=== PATIENT | female | born 1950 | race Caucasian/White ===

== ENCOUNTER 2016-12-28 21:05 | Observation (INO) | payer MEDICARE ==
[~2016-12-28] VITALS: Ht 162.6 cm; Wt 100.2 kg
[2016-12-28 21:05] VITALS: BP 161/88; PULSE 90; RESP 24; O2SAT 94
[~2016-12-28 21:05] MED LIST: ASPI-973 PO; CHOL5000 PO; FENO135C PO; ZINC50TA56 PO; ZOV800 PO
--- NOTE | 2016-12-28 21:22 | ED.REPORT ---
HPI-Neurologic Deficit Date of Service Dec 28, 2016 ED Provider: Dr. 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 She was trying to drink a smoothie through a straw out of a glass and she couldn't get the right side of her mouth to warp around the straw. On the car ride over, she noticed slight numbness and tingling on the right side of her mouth. She denies LOC, confusion, dizziness, seizure, slurred speech, inability to speak, and weakness. Nursing Notes Stated Complaint: POSS STROKE,SLURRED SPEECH Chief Complaint: Neuro Symptoms/ Deficits Nursing Notes Reviewed: Yes Allergies: Coded Allergies: hydrocodone bitartrate (Verified Allergy, Unknown, NIGHTMARES, 01/13/16) iodine (Verified Allergy, Unknown, 12/28/16) "iffy reaction, can't remember" Scheduled Acyclovir (Acyclovir) 800 Mg Tab 500 MG PO 5XD Zinc Amino Acid Chelate (Zinc) 50 Mg Tablet 50 MG PO DAILY General Time Seen by Provider: 21:22 Chief Complaint Other (numbness right side of mouth) Hx Obtained From: Patient Arrived By: Walk-in Sudden in Onset?: Yes Onset Occurred: 16 - 30 minutes ago Symptom Duration: Since onset Severity: Current: No pain currently Recent Healthcare: No recent doctor visit, No recent hospitalization Similar Sx Previous: No Risk Factors NIH Stroke Scale Level of Consciousness: Alert and responsive (0) Ask Month & Age: Both questions right (0) Open/Close Eyes/Hand Faculty Head: Performs both tasks (0) Horizontal EO Movements: None (0) Visual Ko: No visual loss (0) Facial Palsy: Normal symmetry (0) Right Arm Motor Drift (10s): No drift 10 sec (0) Left Arm Motor Drift (10s): No drift 10 sec (0) Right Leg Motor Drift (5s): No drift 5 sec (0) Left Leg Motor Drift (5s): No drift 5 sec (0) Limb Ataxia FNF/Heel-Carrillo: No ataxia (0) Sensation (Arms/Legs/Face): No sensory loss (0) Language Aphasia: No aphasia, normal (0) Dysarthria: No dysarthria, normal (0) Extinction/Inattention: No exctinct/inattent (0) NIHSS Score: 0 Time NIHSS Performed: 21:30 Date NIHSS Performed: Dec 28, 2016 Past Medical History Past Medical History Reports: Diabetes mellitus Past Surgical History Reports: Tonsillectomy Smoking History Unknown if Ever Smoker Social History Other Social History: , Local resident Ambulatory Status Independent Review of Systems Neurologic: Denies: Change LOC, Confusion, Dizziness, Seizure, Slurred speech, Unable to speak, Weakness Complete sys rev & neg: except as marked. Ears / Nose / Throat: Reports: Mouth pain (right side mouth asymmetry ) Physical Exam Initial Vital Signs Vital Signs (First) Date Time Temp Pulse Resp B/P Pulse Ox O2 Delivery O2 Flow Rate FiO2 12/28/16 21:05 90 24 161/88 94 Room Air Initial VS: Reviewed ENT: Mucous membranes moist, Conjunctiva normal, No scleral icterus Neck: Supple, Non-tender, Full range of motion Abdomen / GI: Soft, Non-tender, No guarding, No rebound, No distention Extremities: Vascular intact, Neuro intact, No swelling, No tenderness Skin: Warm, Dry, No cyanosis Psychiatric: Mood/affect normal, Behavior normal, Normal thought content General/Constitutional: Awake, Alert Head / Eyes: Normocephalic, PERRL, EOMI potential facial asymmetry Respiratory / Chest: Atraumatic, Breath sounds NL, Breath sounds = bilat, No respiratory distress, No rales, No rhonchi, No wheezing, No retractions Cardiovascular: Heart rate NL, Regular rhythm, Heart sounds NL, No gallop, No murmurs, No rubs Neurologic: Oriented X3, Speech NL, No motor deficits, No sensory deficits, CN II - XII intact, Cerebellar NL, Memory NL Interpretation & Diagnostics Interpretation & Diagnostics: CT ANGIOGRAM NECK CONCLUSION: no significant stenosis 4 mm pulmonary nodule 4 mm and 10 mm thyroid nodules Lab Results Interpretation Result Diagram: 12/29/16 0652 12/29/16 0652 Test 12/28/16 21:20 12/28/16 23:45 Hold Purple Top Tube Received (Received) Prothrombin Time 9.8sec (8.1-12.5) Prothromb Time International Ratio 0.92ratio Activated Partial Thromboplast Time 26.1sec (22.8-33.0) Hold Blue Top Tube Received (Received) Total Bilirubin 0.4mg/dL (0.0-1.2) Aspartate Amino Transf (AST/SGOT) 30U/L (0-50) Alanine Aminotransferase (ALT/SGPT) 25U/L (0-32) Alkaline Phosphatase 84U/L (25-165) Troponin T 0.010ug/L (0.0-0.011) Total Protein 7.1g/dL (6.4-8.4) Albumin 4.4g/dL (3.4-5.0) Hold Gaston Top Tube Received (Received) Hold Liang Top Tube Received (Received) Urine Color Yellow (YELLOW) Urine Appearance Clear (CLEAR,HAZY) Urine pH 7.5 (5.0-8.0) Urine Specific Floris 1.015 (1.003-1.035) Urine Protein Negativemg/dL (NEG,TRACE) Urine Glucose (UA) Negativemg/dL (NEGATIVE) Urine Ketones Negativemg/dL (NEGATIVE) Urine Occult Blood Trace (NEGATIVE) Urine Nitrite Negative (NEGATIVE) Urine Bilirubin Negative (NEGATIVE) Urine Urobilinogen Normalmg/dL (NORMAL) Urine Leukocyte Esterase Trace (NEGATIVE) Urine RBC 3-10/hpf (0-2) Urine WBC 6-10/hpf (0-5) Urine Epithelial Cells Many/hpf (NONE-MOD) Urine Crystals None seen (NONE SEEN) Urine Bacteria None/hpf (NONE-FEW) Urine Hyaline Casts None/lpf (NONE) Urine Granular Casts None seen (NONE SEEN) Urine Waxy Casts None seen (NONE SEEN) Urine Red Blood Cell Casts None seen (NONE SEEN) Urine White Blood Cell Casts None seen (NONE SEEN) Urine Mucus None seen (None Seen) Urine Trichomonas None seen (NONE SEEN) Urine Yeast None (NONE SEEN) Urine Culture Reflexed Indicated ECG Interpretation Time: 10:00 Interpreted by: ED physician Normal ECG Interpretation: Normal ECG w/ rate of... (87) CT Head Interpretation IMPRESSION: 1. No acute intracranial process. Dictated by: Alley Willingham M.D. on 12/28/2016 at 21:51 Approved by: Alley Willingham M.D. on 12/28/2016 at 21:51 Re-Eval/Medical Decision Med Decision/Clinical Course Patient presents with right-sided facial weakness. She first noticed this when she was drinking a smoothie and she could not get the right side of her mouth to wrap around the cut. Gen. drive her here. Her NIH stroke score was initially 0. I could not see any facial asymmetry whatsoever and she had no sensory loss. She did have pain behind her right ear and over her mastoid. This area also looked well. She underwent CT imaging which was normal. CT and U Thomas did not show any evidence of an acute occlusion. After about an hour and a half I was able to appreciate some very mild facial asymmetry. I consulted with the stroke neurologist on-call at [facility]. He recommends against TPA. His thoughts of this is most likely a Smith's palsy due to the fact that she has an isolated cranial nerve VII palsy and she has preauricular pain. 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 Either way her NIH stroke score is 0 or 1 depending on what time evaluate her. There is no one a indication for thrombolytics. She will be admitted for the remainder of the stroke workup. Will start on aspirin therapy. The CT did mention lung nodule. The hospitalist is aware of this. This will need outpatient follow-up. Counseled Regarding: Diagnosis, Lab results, Need for admission Discharge & Departure Impression: Primary Impression: Facial droop Disposition: ADMITTED TO HOSPITAL Discharge Condition All VS Reviewed: Yes Condition: Stable Referrals: Tim Valerio MD (PCP) Jordon Attestation Portion of this note were transcribed by Ayah Burrell. I, Dr. Cox, personally performed the history, physical exam, and medical decision-making: I reviewed and confirmed the accuracy for the information in the transcribed note. Signed by: jordon Frey, 12/28/16 [id number] copies to: Tim Valerio MD, Todd P DO Dec 28, 2016 21:22 Ayah Burrell Dec 28, 2016 21:30 Urine Hyaline Casts None/lpf (NONE) Urine Granular Casts None seen (NONE SEEN) Urine Waxy Casts None seen (NONE SEEN) Urine Red Blood Cell Casts None seen (NONE SEEN) Urine White Blood Cell Casts None seen (NONE SEEN) Urine Mucus None seen (None Seen) Urine Trichomonas None seen (NONE SEEN) Urine Yeast None (NONE SEEN) Urine Culture Reflexed Indicated ECG Interpretation Time: 10:00 Interpreted by: ED physician Normal ECG Interpretation: Normal ECG w/ rate of... (87) CT Head Interpretation IMPRESSION: 1. No acute intracranial process. Dictated by: Alley Willingham M.D. on 12/28/2016 at 21:51 Approved by: Allye Willingham M.D. on 12/28/2016 at 21:51 Re-Eval/Medical Decision Counseled Regarding: Diagnosis, Lab results, Need for admission Discharge & Departure Impression: Primary Impression: Facial droop Disposition: ADMITTED TO HOSPITAL Discharge Condition All VS Reviewed: Yes Condition: Stable Referrals: Tim Valerio MD (PCP) Jordon Attestation Portion of this note were transcribed by Ayah Burrell. I, Dr. Cox, personally performed the history, physical exam, and medical decision-making: I reviewed and confirmed the accuracy for the information in the transcribed note. Signed by: jordon Frey, 12/28/16 1622 copies to: Tim Valerio MD, Todd P DO Dec 28, 2016 21:22 Ayah Burrell Dec 28, 2016 21:30
[2016-12-28 21:45] LABS: BASOPHILS % (AUTO) 0.2 % (0-3); EOSINOPHILS % (AUTO) 1.5 % (0-5); MONOCYTES % (AUTO) 7.5 % (4-12); Mean Corpuscular Hemoglobin 28.5 pg (27.0-35.0); Mean Corpuscular Volume 84.1 fL (81-100); NEUTROPHILS % (AUTO) 57.2 % (40-74); Platelet Count 194 bil/L (150-400)
[2016-12-28 21:50] LABS: INR 0.92 ratio
--- NOTE | 2016-12-28 21:53 | DRSVH ---
PROCEDURE: CT BRAIN WITHOUT CONTRAST ([id number]) INDICATIONS: right facial numbess/feels like lips are "off" TECHNIQUE: Noncontrast 4.5 mm thick angled axial sections acquired from the foramen magnum to the vertex, with c oronal reformats. COMPARISON: None. FINDINGS: Image quality: Excellent. CSF spaces: Basal cisterns are patent. No extra-axial fluid collections. Ventricles are normal in size and shape. Brain: No midline shift. No intracranial masses or hemorrhage. Coleman-white matter interface is norm al. Skull and face: Calvarium and visualized facial bones are intact, without suspicious lesions. Sinuses: Visualized sinuses and mastoids are clear. IMPRESSION: 1. No acute intracranial process. Dictated by: Alley Willingham M.D. on 12/28/2016 at 21:51 Approved by: Alley Willingham M.D. on 12/28/2016 at 21:51
[2016-12-28 22:42] LABS: TROPONIN T 0.01 ug/L (0.0-0.011)
[2016-12-29] VITALS (7 sets, daily range): BP systolic 138–156; BP diastolic 82–88; PULSE 81–90; RESP 18; O2SAT 93–95
[2016-12-29 00:12] LABS: APPEARANCE,URINE CLEAR (CLEAR,HAZY); COLOR,URINE YELLOW (YELLOW); OCCULT BLOOD,URINE TRACE (NEGATIVE); PH,URINE 7.5 (5.0-8.0); UROBILINOGEN,URINE NORMAL (NORMAL)
[2016-12-29] MEDS: Sodium Chloride LOK Flush 10 mL Syringe IVFLUSH SCH ×3 (00:39→16:34)
[2016-12-29] MEDS ORDERED: Alum-Mag Hydrox-Simeth 30 mL Suspension PO PRN (01:35)
[2016-12-29] MEDS ORDERED: Ondansetron 2 mg/mL 2 mL Inj IV PRN (01:35)
[2016-12-29] MEDS ORDERED: Polyethylene Glycol (PEG) 17 Gm Powder PO PRN (01:35)
--- NOTE | 2016-12-29 05:10 | PCM.HPMED ---
Subjective Date of Service Dec 29, 2016 Primary Provider: Admitting Physician: Primary Care Physician: Tim Valerio MD Attending Physician: Admit Status: From the Emergency Department Chief Complaint: Facial droop History of Present Illness: 66 year old female w/ a hx of DM who presented to the ED accompanied by her due to concern of a stroke with right-sided facial droop. Symptoms started 20 minutes prior to arrival, she was trying to drink a smoothie through a straw out of a glass and she couldn't get the right side of her mouth to warp around the straw. She noticed that her lip and face felt funny and continued worsening. She had some associated generally unwell feelings at that time and attributes it to anxiety because she was really worried that she may be having a stroke. Currently she describes the sensation as if she had Novocain 8-10 hours ago. She has neuropathy in her lower extremities and understands what nerve pain feels like, she says her facial pain is not intense. She notes that a few days ago she fell asleep on her right side with hearing aid in and since Wednesday has been feeling some right-sided lower parietal and occipital pain "behind the ear". She reports no recent viral illness or infection. No recent travel or hiking. She reports some gradually increasing forgetfulness over the last few years. Review of systems positive for occasional mild chest discomfort , patient attributes this to GERD and Pittman's esophagus. She denies LOC, confusion, dizziness, seizure, slurred speech, inability to speak, difficulty swallowing, and focal weakness. Review of Systems: A comprehensive review of systems was conducted with the patient and found to be negative except as above in the History of Present Illness. Allergies Coded Allergies: hydrocodone bitartrate (Verified Allergy, Unknown, NIGHTMARES, 01/13/16) iodine (Verified Allergy, Unknown, 12/28/16) "iffy reaction, can't remember" Home Medications Acyclovir PMH 1. Diabetes Mellitus Type 2 2. GERD 3. Pittman's esophagus 4. Obstructive sleep apnea 5. Hyperlipidemia 6. Peripheral neuropathy 7. Fibroids 8. Kidney stones 9. Hearing loss Surgical History 1. Tonsillectomy 2. Bilateral knee replacements, right 2 3. Left foot repair 4. D&C 5. Left oophorectomy for abscess to ovarian cyst 6. L5-S1 decompression 7. Sinus surgery Family History Father at age 84 with CHF, he also had Parkinson's and dementia. Mother had diabetes mellitus type II Sister has rheumatoid arthritis Social History Occupation: retired Hx Alcohol Use: No Hx Substance Use: No Smoking Status: Former Smoker (quit in 1989) Living Arrangement: with Family Exam Vital Signs Vital Sign - Last Date Time Temp Pulse Resp B/P Pulse Ox O2 Delivery O2 Flow Rate FiO2 12/28/16 21:05 90 24 161/88 94 Room Air Exam General: No acute distress, well-developed, well-nourished, appropriately interactive HEENT: Normocephalic, atraumatic. External ears without defect. Pupils equal, round, and reactive to light and accommodation. Anicteric sclerae, moist conjunctiva. Oropharynx free of erythema and cobble stoning with moist mucosa. Neck: Supple with full range of motion. No jugular venous distension. No lymphadenopathy, right thyroid lobe mildly enlarged. Cardiovascular: Regular rate and rhythm with no murmurs, rubs, or gallops appreciated Pulmonary: Clear to auscultation bilaterally with no crackles, wheezes, or rhonchi. Normal respiratory effort with no use of accessory muscles. Abdomen: Bowel tones present. Obese, soft, nontender, nondistended. No hepatosplenomegaly or masses appreciated. Extremities: No clubbing, cyanosis, edema, or lymphadenopathy appreciated. Skin: Normal temperature, turgor, and texture; no rash, ulcers, or subcutaneous nodules appreciated. Neurological: Right-sided facial weakness noted with decreased ability to raise right eyebrow and a symmetrical smile. Facial sensation intact, tongue movements normal. Ocular movements symmetric and congruent. Normal muscle strength, tone, and bulk. Reflexes, coordination, and sensory function within normal limits. Difficulty with hand engraver tire mold secondary to arthritis. No pronator drift. No known gait impairment. Psychiatric: Normal mood and affect. Alert and oriented to person, place, and time. Lab and Diagnostics Result Diagram: 12/28/16211912/28/162119 X-Rays, CTs and MRIs PROCEDURE: CT BRAIN WITHOUT CONTRAST ([id number]) IMPRESSION: 1. No acute intracranial process. Dictated by: Alley Willingham M.D. on 12/28/2016 at 21:51 CT angiogram preliminary read shows no significant stenosis, 4 mm pulmonary nodule, thyroid nodules 4 mm and 10 mm. Assessment & Plan 66 year old female with history of DM type II who presented to the ED accompanied by her due to concern of a stroke with right-sided facial droop. 1. Right-sided facial droop, present on admission, acute - Consider CVA versus bells palsy. - CT brain shows no acute intracranial abnormalities - MRI brain ordered for the morning - Neuro checks q4HR, permissive HTN - HgbA1c pending, lipid panel pending, ASA 325 daily, initiate statin tx - 60 mg prednisone daily ordered recommended short course for Smith's palsy treatment if MRI does not show evidence of CVA 2. 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 Severe obstructive sleep apnea - patient to use own home CPAP machine Chronic conditions not currently active GERD/Pittman's esophagus - When necessary Maalox Peripheral neuropathy Diabetes mellitus type II - Currently Diet controlled with hemoglobin A1c less than 6 for the last 2 years per patient report. Patient is admitted under observation status with expected length of stay less than 2 midnights due to severity of presenting symptoms, risk of adverse event, and complexity of treatment plan. PCP Tim Valerio in [facility] Pain Evaluation: Adequate Pain Control GI Prophylaxis: Not indicated VTE Prophylaxis: Sub-Q Heparin (Unfractionated) (hep) Resuscitation Status: CPR: Attempt Resuscitation Attending Statement The patient was seen and examined together with house staff on 12/29/2016 and I agree with the history, exam and plan as outlined in the note above. copies to: Tim Valerio MD, Erika R DO Dec 29, 2016 02:41 Orly East DO Dec 29, 2016 05:29
--- NOTE | 2016-12-29 06:29 | NUR ---
Admit Pt arrived on unit from ED with all personal belongings. Able to transfer self to bed. VSS. Complained of neck pain 3/10, refused pain medication. Denies SOB, n/v. Complained of tingling and numbness around mouth. Slight right sided facial droop. Decreased clinical quality analyst r/t arthritis. Pt refused skin check. Allergy balcony worker bracelet. Bed locked, low position. Call light within reach, using appropriately.
[2016-12-29 07:13] LABS: BASOPHILS % (AUTO) 0.3 % (0-3); EOSINOPHILS % (AUTO) 1.7 % (0-5); MONOCYTES % (AUTO) 7.9 % (4-12); Mean Corpuscular Hemoglobin 28.2 pg (27.0-35.0); Mean Corpuscular Volume 84.9 fL (81-100); NEUTROPHILS % (AUTO) 57.6 % (40-74); Platelet Count 161 bil/L (150-400)
--- NOTE | 2016-12-29 08:06 | NUR ---
pt refusing all medications/and care until she has an official diagnosis after her MRI.
[2016-12-29] MEDS: Acyclovir 400 mg Tablet PO SCH ×3 (08:10→21:31)
[2016-12-29] MEDS: Heparin 5,000 Unit/mL Inj SUBQ SCH ×2 (08:10→20:30)
[2016-12-29] MEDS: predniSONE 10 mg Tablet PO SCH (08:10)
--- NOTE | 2016-12-29 10:41 | DRSVH ---
PROCEDURE: CT ANGIO BRAIN NECK TPA INDICATIONS: right facial droop TECHNIQUE: Pre-contrast 4.5 mm thick sections acquired from the foramen magnum to the vertex. After the adminis tration of intravenous contrast, 1 mm thick sections acquired from the aortic arch through the [place] of [place]. Post-contrast 4.5 mm thick sections then re-acquired from the foramen magnum to the vert ex. 3-dimensional qktzckb-xnxqeroul-srdztbjpnu (MIP) and/or volume rendering reformats were acquired of the central intracranial vasculature and neck separately. For radiation dose reduction, the foll owing was used: automated exposure control, adjustment of mA and/or kV according to patient size. COMPARISON: None. FINDINGS: Image quality: Limited by patient motion. BRAIN: CSF spaces: Ventricles are normal in size and shape. Basal cisterns are patent. No extra-axial flu id collections. Brain: No midline shift. No intracranial bleeds or masses. Coleman-white matter interface appears int act. Skull and face: Calvarium and facial bones appear intact, without suspicious lesions. Orbits appear normal. Sinuses: Sinuses and mastoids are clear. HEAD CT ANGIOGRAPHY: Anterior circulation: Intracranial internal carotid arteries are normal in size and flow. The flow within the paired anterior cerebral arteries is normal and symmetric. The flow within the middle cer ebral arteries is normal and symmetric. The anterior communicating artery is seen. No aneurysms are seen. Posterior circulation: Visualized portions of the vertebral arteries demonstrate normal caliber, and join to form a normal appearing basilar artery. Flow within the posterior cerebral arteries is norm al and symmetric. No aneurysms are seen. NECK CT ANGIOGRAPHY: Carotid system: The great vessels demonstrate a conventional anatomy as they arise from the aortic a rc. The origins of the common carotid arteries appear patent. The common carotid arteries demonstr ate normal caliber and courses. Atherosclerotic calcifications noted in the origin of the right inter nal carotid artery which causes mild, approximately 20% narrowing of the vessel. Origin of left inter nal carotid artery is fully patent.. Posterior circulation: The origins of the vertebral arteries both appear widely patent. The more wade perior extracranial portions of both vertebral arteries also demonstrate normal courses and calibers. They join to form a normal appearing basilar artery. Soft tissues: Visualized neck soft tissues demonstrate no suspicious abnormalities. 0.7 cm diameter nodule with spiculated margins is noted in the apex the left lung (series 13, image 13). 1 cm nodules noted in the left lobe of the thyroid gland. A 0.4 cm nodule noted in the right lobe of thyroid glan d. Bones: No suspicious bony lesions. Visualized cervical spine appears normally aligned. IMPRESSION: 1. No acute intracranial disease process. 2. No vascular occlusion or significant vascular stenosis. 3. Approximately 20% stenosis of the origin of the right internal carotid artery. 4. 7 mm spiculated nodule in the left upper lobe suspicious for malignancy. Recommend dedicated CT sc an of the chest for further evaluation. 5. Thyroid nodules. Recommend thyroid ultrasound for definitive characterization. Dictated by: Cindy Huitron MD, PhD on 12/29/2016 at 10:33 Approved by: Cindy Huitron MD, PhD on 12/29/2016 at 10:40
--- NOTE | 2016-12-29 15:31 | NUR ---
Social Work-attempted assessment: Data:EMR Reviewed. Pt is a 66 y/o female who was admitted on 12/29/16 for R facial droop per H&P. Pt's insurance is [facility] and [employer] supp and PC Pis Tim Valerio MD. EMR Reviewed. SW attempted to see pt today, but was updated by RN that now is not a good time because pt is trying to rest. Pt has orders to be seen by PT, OT ,and ST. SW updated by PT that pt has been up independent in her room, no needs. SW to follow up with pt tomorrow to complete assessment. Assessment:Pt who is independent at baseline. Plan:SW to follow up with pt tomorrow to complete assessment. SW will continue to follow. NAY Stringer
--- NOTE | 2016-12-29 16:17 | NUR ---
Evaluation attempted. Patient was not in room this evening. AIR BATTLE MANAGER recommended for oral motor exercises and compensatory strategies for R facial droop. Will attempt again tomorrow. If patient discharges prior to AIR BATTLE MANAGER evaluation, recommend outpatient AIR BATTLE MANAGER to review strategies and exercises for R facial droop.
--- NOTE | 2016-12-29 16:46 | DRSVH ---
PROCEDURE: MRI BRAIN WITHOUT CONTRAST ([id number]) INDICATIONS: right facial droop TECHNIQUE: Non-contrast axial T1 spin echo, axial T2 fast spin echo, sagittal and axial FLAIR, coronal T2 fast s pin echo, axial gradient echo, axial diffusion and ADC through the brain. COMPARISON: None. FINDINGS: Image quality: Excellent. CSF spaces: Ventricles appear symmetric in size and shape. Basal cisterns are patent. No extra-axi al fluid collections. Brain: No intracranial bleeds or mass effects. There is cerebral volume loss for age. There are mi nimal periventricular and deep white matter chronic small vessel ischemic changes. Brainstem appears normal. Diffusion-weighted images show no acute ischemic insults. No chronic ischemic insults. No rmal intravascular flow voids are present. Skull and face: Calvarial bone marrow is normal in signal. Orbits are normal. Sinuses: Sinuses and mastoids are clear. IMPRESSION: 1. No acute intracranial disease process. 2. No areas of acute or chronic infarction. 3. Mild, diffuse volume loss. 4. Minimal periventricular and subcortical white matter chronic microvascular ischemic changes. Dictated by: Cindy Huitron MD, PhD on 12/29/2016 at 16:41 Approved by: Cindy Huitron MD, PhD on 12/29/2016 at 16:44
--- NOTE | 2016-12-29 17:19 | DRSVH ---
[facility] [address] [place] [address] Echocardiogram Report Name: RITA DEAN KStudy Date: 12/29/2016 Height: 64 in Hospital Exam Location: [facility] Weight: 220 lb Gender: Female BSA: 2.0 m2 : 1950 Age: 66 yrs BP: 138/82 mmHg Reason For Study: STROKE Ordering Physician: Performed By: Oliver Bobby Referring Physician: Ruiz OROZCO Interpretation Summary 1) Mild concentric left ventricular hypertrophy with normal size, wall motion, and systolic function (EF 60-65%). 2) Normal right ventricular size and function. 3) No significant valvular abnormalities. 4) No prior Echo available for comparison. Procedure: A two-dimensional transthoracic echocardiogram with color flow and Doppler was performed. The study quality was technically adequate. Comparison is made with the echocardiogram of 12/14/07. The patient was in normal sinus rhythm during the exam. Left Ventricle: The left ventricle is normal in size. There is mild concentric left ventricular hypertrophy. The ejection fraction is estimated to be 60-65%. Left ventricular systolic function is normal. There are no focal wall motion abnormalities. Assessment of diastolic parameters indicates a relaxation abnormality of the left ventricle, consistent with normal filling pressures. Right Ventricle: The right ventricle is normal in size and function. Atria: Both atria are normal in size. The interatrial septum is intact with no evidence for an atrial septal defect. Mitral Valve: The mitral valve is normal in structure and function. There is no mitral regurgitation noted. Aortic Valve: The aortic valve is normal in structure and function. The aortic valve is trileaflet. The aortic valve opens well. There is no aortic valve stenosis. No aortic regurgitation is present. Tricuspid Valve: The tricuspid valve is normal in structure and function. No tricuspid regurgitation. Pulmonary artery pressures cannot be estimated because of the lack of a measurable TR jet velocity. Pulmonic Valve: The pulmonic valve is not well seen, but is grossly normal. There is no pulmonic valvular regurgitation. Great Vessels: The aortic root is normal size. The dimensions of the ascending aorta are normal. The pulmonary artery is normal size. The IVC is of normal diameter and collapses greater than 50% with a sniff. This suggests a low right atrial pressure of 3 mm Hg. Pericardium/ Pleura There is no pericardial effusion. There is no pleural effusion. MMode/2D Measurements & Calculations LVIDd: 4.6 cm LA dimension: 3.4 cm RA long axis Ao root diam LVIDs: 2.3 cm FS: 49.2 % LA A2 area: 16.7 cm RA area Aortic Jxn: 2.5 cm EPSS: 0.75 cm LA A4 area: 16.2 cm asc Aorta Diam IVSd: 1.2 cm LA length (vol) : 13.2 cm LVPWd: 1.0 cm RA vol Ao Arch Diam (Prox LA vol: 45.6 ml : 38.1 ml Trans): 2.5 cm LA vol index RA : 18.7 mm2 IVC diam: 1.3 cm LV garcía. diameter/BSA LV sys. diameter/BSA (cm/m^2): 2.2 (cm/m^2): 1.1 Doppler Measurements & Calculations Ao V2 max MV E max david MV E/A: 0.78 PA V2 max: 88.8 cm/sec : 186.9 cm/sec : 88.3 cm/sec Med Peak E' David PA mean P.8 mmHg Ao max PG MV A max david PA Accel Time: 0.09 sec : 14.0 mmHg : 113.7 cm/sec E/E' med: 14.6 Ao mean PG Lat Peak E' David : 7.2 mmHg E/E' lat: 10.5 E/e' average Pulm A Revs Dur MV A dur: 0.10 sec MV dec time Ao V2 mean PA V2 mean Pulm A Revs Dur - MV A : 0.18 sec : 128.0 cm/sec : 63.7 cm/sec Dur: 0.03 msec Ao V2 VTI: 32.0 cmPA pr(Accel) : 32.4 mmHg Reading Physician:04:11 PM
--- NOTE | 2016-12-29 20:12 | DRSVH ---
PROCEDURE: CT CHEST WITH CONTRAST ([id number]) INDICATIONS: lung nodule noted on head CT TECHNIQUE: After the administration of intravenous contrast, 5 mm thick sections acquired from the pulmonary api genny to the posterior costophrenic angles. 7 mm thick coronal and sagittal MIP reformats were acquire d. For radiation dose reduction, the following was used: automated exposure control, adjustment of mA and/or kV according to patient size. COMPARISON: [facility], CR, CHEST 2VW, 10/30/2012, 19:17. [facility], CT, CT ANGIO BRAIN NECK TPA, 12/29/2016, 0:30. FINDINGS: Image quality: Excellent. Lungs and pleura: No acute consolidation, pleural effusion or pneumothorax. There is scattered bibasi lar scarring/atelectasis. Recent identified 5 mm nodule in the left upper lobe as seen on image 17 se lenore 3. Additional larger 7 mm nodule with internal calcification seen on image 32. Dominant 9-10 mm nodule in the superior segment of the left lower lobe on image 31 series 3. Mediastinum: Heart size is normal. No pericardial effusion. No mediastinal or hilar adenopathy by size criteria. Thoracic aorta and central pulmonary arteries are normal in size. Esophagus is selvin l in caliber. No hiatal hernia. Bones and chest wall: No suspicious bony lesions. No vertebral body compression fractures. No axil omsan or supraclavicular adenopathy by size criteria. Thyroid gland negative. Abdomen: Hepatic steatosis is present IMPRESSION: Multiple left lung pulmonary nodules measuring up to 9-10 mm as detailed above. These are indetermina te in the absence of relevant comparison studies, and metastatic/malignant possibilities cannot be ex cluded. Therefore recommend continued surveillance with noncontrast chest CT in 3 months or alternati vely at clinical discretion further assessment with PET/CT could be considered Dictated by: Ean Hart M.D. on 12/29/2016 at 20:04 Approved by: Ean Hart M.D. on 12/29/2016 at 20:11
[2016-12-30] MEDS: Sodium Chloride LOK Flush 10 mL Syringe IVFLUSH SCH ×2 (02:03→07:39)
--- NOTE | 2016-12-30 03:51 | NUR ---
refusal of care assumed care @23:00. Pt refused to be assessed and just want to be left alone tonight. Pt sleeping intermittently.
[2016-12-30 03:59] VITALS: PULSE 73
[2016-12-30 06:41] VITALS: BP 154/85; PULSE 72; RESP 18; O2SAT 97
[2016-12-30] MEDS: predniSONE 10 mg Tablet PO SCH (07:38)
[2016-12-30] MEDS: Heparin 5,000 Unit/mL Inj SUBQ SCH (07:38)
[2016-12-30] MEDS: Acyclovir 400 mg Tablet PO SCH (07:39)
[2016-12-30 09:22] VITALS: BP 151/75; PULSE 84; RESP 18; O2SAT 95
--- NOTE | 2016-12-30 10:15 | NUR ---
Social Work-initial assessment/discharge: Data:See initial assessment. pt is a 66 y/o female who was admitted on 12/29/16 for R facial droop per H&P. Pt's insurance is [employer] and PCP is Tim Valerio MD. EMR reviewed. SW met with pt at bedside to discuss discharge planning, SW role explained. Pt is alert and oriented x3. Pt is likely ready to discharge home today. Pt resides at home with her where she remains independent with ADLs. Pt does not use any DME and drives. Pt has no HH or SNF history. Pt has no jail care or VA benefits. SW discussed DPOA/ advanced directive, pt confirms that she has not completed this, SW provided paperwork. Pt's to provide transport home today. SW provided phone number and plan on white board in room. No discharge needs identified. All updated and agreeable to plan. Assessment:Pt who is independent at baseline. Plan:Pt to discharge home today via POV. No discharge needs identified. All updated and agreeable to plan. NAY Stringer Addendum: 12/30/16 at 1018 by AURORA BAILEY Amended: Links added.
--- NOTE | 2016-12-30 11:01 | NUR ---
Evaluation completed. Please go to "Notes" then click on "Assessments and Notes" (bottom left corner of screen). Then select appropriate discipline tab on top of screen.
[2016-12-30] MEDS ORDERED: PRE10 PO (11:22)
--- NOTE | 2016-12-30 11:32 | PCM.DIMED ---
Discharge Instructions Date of Service Dec 30, 2016 Dates of Hospitalization Dec 29, 2016 at 03:02 Discharge Diagnosis Discharge Diagnosis 1. Acute right facial Smith's Palsy, present on admission. Ongoing. Possibly due to Herpes Simplex Virus. - Acute cerebrovascular accident (CVA) ruled out with CT and MRI of brain 2. 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 Obstructive sleep apnea on home CPAP 4. Multiple left lung pulmonary nodules measuring up to 9-[address] chest on 12/29/16. per radiology: "These are indeterminate in the absence of relevant comparison studies, and metastatic/malignant possibilities cannot be excluded. Therefore recommend continued surveillance with noncontrast chest CT in 3 months or alternatively at clinical discretion further assessment with PET/ CT could be considered" - Recommend further followup with your ribbon hand or primary care doctor as soon as possible for further management and workup 5. Possible pre-diabetes with HgA1C 7.4 6. Hyperlipidemia (Triglyceride: 444, Cholesterol 217, LDL: 96, HDL: 32) 7. Thyroid nodules noted on CT scan of chest on 12/28/16. - Recommend thyroid ultrasound as outpatient for definitive characterization. 8. GERD/Pittman's esophagus, chronic. Diet Low fat, Low Sodium, Heart Healthy Activity No restrictions Call your provider Fever or Chills, Shortness of breath, Chest pain, Weakness (unilateral) Patient Instructions Seek immediate medical attention if any new or worsening signs or symptoms occur. Follow-up plan 1. Followup with primary care provider (Dr. Valerio) within one week and for further management and workup of issues noted above. Follow-up Provider: Tim Valerio MD Follow-up with PCP in: 1 week Paul Hale Dec 30, 2016 11:32
--- NOTE | 2016-12-30 14:15 | NUR ---
Discharge Pt was discharged to home today via her spouse and POV. Pt IV taken out, cath tip intact. Pt had numerous questions regarding bells palsy and all questions answered and f/u understood.
--- NOTE | 2016-12-30 15:33 | PCM.DC.MED ---
Discharge Summary Date of Service Dec 30, 2016 Dates of Hospitalization Date of Hospital Admission Dec 29, 2016 at 03:02 Date of Discharge: Dec 30, 2016 Providers: Admitting Physician: Orly East DO Primary Care Physician: Tim Valerio MD Attending Physician: Orly East DO Diagnosis at Time of Discharge Diagnosis at Time of Discharge 1. Acute right facial Smith's Palsy, present on admission. Ongoing. Possibly due to Herpes Simplex Virus. - Acute cerebrovascular accident (CVA) ruled out with CT and MRI of brain 2. 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 Obstructive sleep apnea on home CPAP 4. Multiple left lung pulmonary nodules measuring up to 9-[address] chest on 12/29/16. per radiology: "These are indeterminate in the absence of relevant comparison studies, and metastatic/malignant possibilities cannot be excluded. Therefore recommend continued surveillance with noncontrast chest CT in 3 months or alternatively at clinical discretion further assessment with PET/ CT could be considered" - Recommend further followup with your public aid eligibility assistant or primary care doctor as soon as possible for further management and workup 5. Possible pre-diabetes with HgA1C 7.4 6. Hyperlipidemia (Triglyceride: 444, Cholesterol 217, LDL: 96, HDL: 32) 7. Thyroid nodules noted on CT scan of chest on 12/28/16. - Recommend thyroid ultrasound as outpatient for definitive characterization. 8. GERD/Pittman's esophagus, chronic. Procedures XRay, CTs & MRIs Date of Service: 12/28/16 2115 PROCEDURE: CT BRAIN WITHOUT CONTRAST ([id number]) IMPRESSION: 1. No acute intracranial process. Dictated by: Alley Willingham M.D. on 12/28/2016 at 21:51 Approved by: Alley Willingham M.D. on 12/28/2016 at 21:51 Date of Service: 12/29/16 0010 PROCEDURE: CT ANGIO BRAIN NECK TPA IMPRESSION: 1. No acute intracranial disease process. 2. No vascular occlusion or significant vascular stenosis. 3. Approximately 20% stenosis of the origin of the right internal carotid artery. 4. 7 mm spiculated nodule in the left upper lobe suspicious for malignancy. Recommend dedicated CT scan of the chest for further evaluation. 5. Thyroid nodules. Recommend thyroid ultrasound for definitive characterization. Dictated by: Cindy Huitron MD, PhD on 12/29/2016 at 10:33 Approved by: Cindy Huitron MD, PhD on 12/29/2016 at 10:40 Date of Service: 12/29/16 0800 PROCEDURE: MRI BRAIN WITHOUT CONTRAST ([id number]) IMPRESSION: 1. No acute intracranial disease process. 2. No areas of acute or chronic infarction. 3. Mild, diffuse volume loss. 4. Minimal periventricular and subcortical white matter chronic microvascular ischemic changes. Dictated by: Cindy Huitron MD, PhD on 12/29/2016 at 16:41 Approved by: Cindy Huitron MD, PhD on 12/29/2016 at 16:44 Date of Service: 12/29/16 9427 PROCEDURE: CT CHEST WITH CONTRAST ([id number]) IMPRESSION: Multiple left lung pulmonary nodules measuring up to 9-10 mm as detailed above. These are indeterminate in the absence of relevant comparison studies, and metastatic/malignant possibilities cannot be excluded. Therefore recommend continued surveillance with noncontrast chest CT in 3 months or alternatively at clinical discretion further assessment with PET/CT could be considered Dictated by: Ean Hart M.D. on 12/29/2016 at 20:04 Approved by: Ean Hart M.D. on 12/29/2016 at 20:11 Cardiac Echo Impression Date of Service: 12/29/16 1995 Echocardiogram Report Interpretation Summary 1) Mild concentric left ventricular hypertrophy with normal size, wall motion, and systolic function (EF 60-65%). 2) Normal right ventricular size and function. 3) No significant valvular abnormalities. 4) No prior Echo available for comparison. Reading Physician:04:11 PM Brief History As noted in H&P by Dr. Rose: 66 year old female w/ a hx of DM who presented to the ED accompanied by her due to concern of a stroke with right-sided facial droop. Symptoms started 20 minutes prior to arrival, she was trying to drink a smoothie through a straw out of a glass and she couldn't get the right side of her mouth to warp around the straw. She noticed that her lip and face felt funny and continued worsening. She had some associated generally unwell feelings at that time and attributes it to anxiety because she was really worried that she may be having a stroke. Currently she describes the sensation as if she had Novocain 8-10 hours ago. She has neuropathy in her lower extremities and understands what nerve pain feels like, she says her facial pain is not intense. She notes that a few days ago she fell asleep on her right side with hearing aid in and since Wednesday has been feeling some right-sided lower parietal and occipital pain "behind the ear". She reports no recent viral illness or infection. No recent travel or hiking. She reports some gradually increasing forgetfulness over the last few years. Review of systems positive for occasional mild chest discomfort , patient attributes this to GERD and Pittman's esophagus. She denies LOC, confusion, dizziness, seizure, slurred speech, inability to speak, difficulty swallowing, and focal weakness. Hospital Course 1. Right-sided facial droop, present on admission, acute - CVA ruled out with CT and MRI - symptoms likely [place] Palsy and likely due to herpes simplex virus - 60 mg prednisone daily x 7 days and to continue with home dose Acyclovir 2. 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 Severe obstructive sleep apnea - patient to use own home CPAP machine 4. Multiple left lung pulmonary nodules measuring up to 9-[address] chest on 12/29/16. per radiology: "These are indeterminate in the absence of relevant comparison studies, and metastatic/malignant possibilities cannot be excluded. Therefore recommend continued surveillance with noncontrast chest CT in 3 months or alternatively at clinical discretion further assessment with PET/ CT could be considered" - Recommend further followup with your public aid eligibility assistant or primary care doctor as soon as possible for further management and workup - patient tells me that she has been worked up by pulmonology (harshal in [place]) in the past for known pulmonary nodules. 5. Possible pre-diabetes with HgA1C 7.4 - further followup as outpatient 6. Hyperlipidemia (Triglyceride: 444, Cholesterol 217, LDL: 96, HDL: 32) - further followup as outpatient 7. Thyroid nodules noted on CT scan of chest on 12/28/16. - Recommend thyroid ultrasound as outpatient for definitive characterization. by day of d/c lungs CTA bilat. neuro exam notable for continued mild right facial droop. Exam Vital Signs (Last) Date Time Temp Pulse Resp B/P Pulse Ox O2 Delivery O2 Flow Rate FiO2 12/30/16 09:22 36.8 84 18 151/75 95 Room Air Test 12/28/16 21:20 12/28/16 23:45 12/29/16 06:52 12/29/16 17:47 Hold Purple Top Tube Received (Received) Prothrombin Time 9.8sec (8.1-12.5) Prothromb Time International Ratio 0.92ratio Activated Partial Thromboplast Time 26.1sec (22.8-33.0) Hold Blue Top Tube Received (Received) Hemoglobin A1c 7.4% (4.8-5.6) Total Bilirubin 0.4mg/dL (0.0-1.2) Aspartate Amino Transf (AST/SGOT) 30U/L (0-50) Alanine Aminotransferase (ALT/SGPT) 25U/L (0-32) Alkaline Phosphatase 84U/L (25-165) Troponin T 0.010ug/L (0.0-0.011) Total Protein 7.1g/dL (6.4-8.4) Albumin 4.4g/dL (3.4-5.0) Hold [place] Top Tube Received (Received) Hold Liang Top Tube Received (Received) Urine Color Yellow (YELLOW) Urine Appearance Clear (CLEAR,HAZY) Urine pH 7.5 (5.0-8.0) Urine Specific Jber 1.015 (1.003-1.035) Urine Protein Negativemg/dL (NEG,TRACE) Urine Glucose (UA) Negativemg/dL (NEGATIVE) Urine Ketones Negativemg/dL (NEGATIVE) Urine Occult Blood Trace (NEGATIVE) Urine Nitrite Negative (NEGATIVE) Urine Bilirubin Negative (NEGATIVE) Urine Urobilinogen Normalmg/dL (NORMAL) Urine Leukocyte Esterase Trace (NEGATIVE) Urine RBC 3-10/hpf (0-2) Urine WBC 6-10/hpf (0-5) Urine Epithelial Cells Many/hpf (NONE-MOD) Urine Crystals None seen (NONE SEEN) Urine Bacteria None/hpf (NONE-FEW) Urine Hyaline Casts None/lpf (NONE) Urine Granular Casts None seen (NONE SEEN) Urine Waxy Casts None seen (NONE SEEN) Urine Red Blood Cell Casts None seen (NONE SEEN) Urine White Blood Cell Casts None seen (NONE SEEN) Urine Mucus None seen (None Seen) Urine Trichomonas None seen (NONE SEEN) Urine Yeast None (NONE SEEN) Urine Culture Reflexed Indicated White Blood Count 7.2th/mm3 (3.8-10.1) Red Blood Count 5.29mil/mm3 (3.90-5.20) Hemoglobin 14.9g/dL (12.0-15.6) Hematocrit 44.9% (35.0-46.0) Mean Corpuscular Volume 84.9fL (81-100) Mean Corpuscular Hemoglobin 28.2pg (27.0-35.0) Mean Corpuscular Hemoglobin Concent 33.2% (32.0-37.0) Red Cell Distribution Width 13.5% (12.3-15.4) Platelet Count 161bil/L (150-400) Neutrophils (%) (Auto) 57.6% (40-74) Lymphocytes (%) (Auto) 31.9% (14-46) Monocytes (%) (Auto) 7.9% (4-12) Eosinophils (%) (Auto) 1.7% (0-5) Basophils (%) (Auto) 0.3% (0-3) Sodium Level 139mEq/L (134-144) Potassium Level 4.2mEq/L (3.5-5.2) Chloride Level 96mEq/L (97-108) Carbon Dioxide Level 23mmol/L (18-29) Blood Urea Nitrogen 11mg/dL (8-27) Creatinine 0.47mg/dL (0.57-1.00) Estimat Glomerular Filtration Rate 190mL/min (>59) Glucose Level 193mg/dL (60-99) Calcium Level 10.0mg/dL (8.5-10.1) Triglycerides Level 444mg/dL (0-149) Cholesterol Level 217mg/dL (100-199) LDL Cholesterol, Calculated 96.200mg/dL (0-99) VLDL Cholesterol 88.800mg/dL HDL Cholesterol 32mg/dL (>39) Cholesterol/HDL Ratio 6.78 (0.0-4.4) Thyroid Stimulating Hormone (TSH) 1.390uIU/mL (0.450-4.500) Free Thyroxine 0.84ng/dL (0.82-1.77) Discharge Medications Discharge Medications Acyclovir (Acyclovir) 800 Mg Tab 500 MG PO 5XD (Reported) Prednisone (PredniSONE) 10 Mg Tablet 60 MG PO DAILY Prescribed by: MUNA PINEDO MD Zinc Amino Acid Chelate (Zinc) 50 Mg Tablet 50 MG PO DAILY (Reported) Followup Plan Disposition: Home Follow-up plan 1. Followup with primary care provider (Dr. Valerio) within one week and for further management and workup of issues noted above. Discharge Diet: Low fat, Low Sodium, Heart Healthy Discharge Activity: No restrictions Patient Instructions Seek immediate medical attention if any new or worsening signs or symptoms occur. Follow-up Provider: Tim Valerio MD Follow-up with PCP in: 1 week Time spent 30 min copies to: Tim Valerio MD, Masoud Dec 30, 2016 15:33
== END 2016-12-30 14:15 | disposition home or self-care (01) ==
LOC: SED 21:05 → MPC 12-29 03:02
PROVIDERS: ADMIT Internal Medicine; ATTEND Internal Medicine
DX: G51.0 Bell's palsy (principal); R29.810 Facial weakness; B00.1 Herpesviral vesicular dermatitis; G47.33 Obstructive sleep apnea (adult) (pediatric); R91.8 Other nonspecific abnormal finding of lung field; E78.5 Hyperlipidemia, unspecified; E04.1 Nontoxic single thyroid nodule; K21.9 Gastro-esophageal reflux disease without esophagitis; R20.0 Anesthesia of skin; E11.42 Type 2 diabetes mellitus with diabetic polyneuropathy; K22.70 Barrett's esophagus without dysplasia; Z87.442 Personal history of urinary calculi; Z88.8 Allergy status to other drugs, medicaments and biological substances; Z96.653 Presence of artificial knee joint, bilateral

== ENCOUNTER 2017-06-15 14:00 | Emergency (ER) | payer MEDICARE ==
[~2017-06-15] VITALS: Ht 161.3 cm; Wt 96.4 kg
[~2017-06-15 14:00] MED LIST changes: -ASPI-973 PO; -CHOL5000 PO; -FENO135C PO; +PRE10 PO
[2017-06-15 14:03] VITALS: BP 115/63; PULSE 90; RESP 15; O2SAT 95
--- NOTE | 2017-06-15 14:23 | ED.REPORT ---
HPI-Extremity Problem Lower Date of Service Jun 15, 2017 ED Provider: Dr. Salazar Pt is a 67 y/o female w/ a hx of NIDDM presenting to the ED c/o bleeding from right lower leg onset 12:30 today. The patient was drying her leg off with a soft towel after taking a shower and noticed a steady stream of bleeding which was gushing a few feet from the wound from her right medial rose which she was unable to stop. She has a history of worsening varicose veins for the past 40 years as well as diabetes. She is not anticoagulated and does not have a history of easy bleeding/bruising. She does not take aspirin. She has never experiencing similar symptoms previously. She denies any other symptoms or recent trauma. Nursing Notes Stated Complaint: LEG PAIN Chief Complaint: Extremity Trauma Nursing Notes Reviewed: Yes Allergies: Coded Allergies: hydrocodone bitartrate (Verified Allergy, Unknown, NIGHTMARES, 01/13/16) iodine (Verified Allergy, Unknown, 12/28/16) "iffy reaction, can't remember" Scheduled Acyclovir (Acyclovir) 800 Mg Tab 500 MG PO 5XD Prednisone (PredniSONE) 10 Mg Tablet 60 MG PO DAILY Zinc Amino Acid Chelate (Zinc) 50 Mg Tablet 50 MG PO DAILY General Time Seen by MD: 14:23 Chief Complaint Leg injury right Hx Obtained From: Patient Arrived By: Walk-in Onset Occurred: Just prior to arrival Symptom Duration: Since onset Severity: Current: No pain currently Severity: Maximum: No pain Recent Healthcare: No recent doctor visit, No recent hospitalization Similar Sx Previous: No Past Medical History Past Medical History Hypertension Hx pneumonia GERD Endometriosis Hx kidney stones hx UTI NIDDM Past Surgical History Bilat knee replacement Tonsillectomy Nasal Left foot Smoking History Former Smoker Social History Other Social History: , Local resident Ambulatory Status Independent Review of Systems Musculoskeletal: Reports: Extremity pain Skin: Denies Bruising Complete sys rev & neg: except as marked. Hematologic: Reports Bleeding, Denies Bruising Physical Exam Initial Vital Signs Vital Signs (First) Date Time Temp Pulse Resp B/P Pulse Ox O2 Delivery O2 Flow Rate FiO2 06/15/17 14:03 36 90 15 115/63 95 Room Air Initial VS: Reviewed, Vital signs normal Head / Eyes: Atraumatic, Normocephalic ENT: Mucous membranes moist, Conjunctiva normal Neck: Supple, Full range of motion Respiratory: Breath sounds normal, Clear to auscultation, No respiratory distress Cardiovascular: Regular rate & rhythm, Heart sounds normal, Intact distal pulses Abdomen / GI: Soft, Non-tender, No distention Upper Extremities: Vascular intact, Neuro intact, No swelling Skin: Warm, Dry, No cyanosis Neurologic: Alert, Oriented, Nonfocal Psychiatric: Mood/affect normal, Behavior normal, Normal thought content Lower Extremity / Pelvis / MS: No deformity, Neurologic intact, Vascular intact Punctate area with steady blood flow which steadily streams out about 6-8 inches from the wound. It is non-pulsatile and dark red blood, likely venous Ankle / Foot: No deformity, Neurologic intact, Vascular intact General/Constitutional: Awake, Alert, No acute distress, Well appearing, Cooperative, Not toxic appearing Procedures Laceration Management Laceration Management: Varicose vein repair Time: 16:40 Procedure Performed by: ED physician Consent / Setup / Site Prep: Consent from patient, Hand hygiene observed, Stand sterile technique Wound Length: 1 cm (punctate area) Local Anesthesia: Lidocaine w epi 1% Wound Preparation: Shurclens Debridement: None Irrigation: Copious Foreign Body Explore / Removal: Explored for foreign body Repair Skin: ___ O (4), Nylon # Sutures - Skin: 1 Closure Layers: 1 Suture Technique: Simple Post-Procedure / Complications: Antibiotic oint applied, Dressing applied, No complications, Condition improved, Tolerated procedure well, Patient stable Re-Eval/Medical Decision Med Decision/Clinical Course 67-year-old female with a history of varicose veins present with a bleeding varicose vein that cannot be stopped with pressure. She is been applying pressure for about 3 hours prior to the visit today and on exam, continues to have a steady flow of blood that is nonpulsatile and dark red in color I placed a cruciate stitch over the area of bleeding after the area was anesthetized with lidocaine 1% with epinephrine. The bleeding was immediately stopped. I advised the patient have the stitch removed in about 7 days by her PCP or back here in the ER. She could consider varicose vein treatments in the future if desired. I also discussed return precautions with the patient Source of Hx: Old records Re-Evaluation/Progress : Time of Eval: 16:48 Re-Evaluation/Progress Note: Pt rechecked. Informed pt of plan for discharge. Pt understands and agrees with plan for discharge. F/U instructions and RTER warnings given. All questions addressed. Counseled Regarding: Diagnosis, Need for follow-up, When/why to return to ED Discharge & Departure Impression: Primary Impression: Hemorrhage of varicose veins of right lower extremity Disposition: Home Discharge Condition All VS Reviewed: Yes Condition: Stable Patient Instructions: Suture Care (ED) Additional Instructions: Thank you for entrusting us with your medical care today. Your bleeding was stopped with the placement of a cruciate suture. Please have this removed in approximately one week here at the ER or by your primary care provider Return to the ER for any new or worsening symptoms Referrals: Tim Valerio MD (PCP) Scribe Attestation Portions of this note were transcribed by Andriy Moreno. I, Dr. Salazar personally performed the history, physical exam and medical decision-making; I reviewed and confirmed the accuracy of the information in the transcribed note. copies to: Tim Valerio MD, Gary R DO Jun 15, 2017 14:23 ANDRIY MORENO Jun 15, 2017 14:27
== END 2017-06-15 16:57 | disposition home or self-care (01) ==
LOC: SED 14:00
DX: R58 Hemorrhage, not elsewhere classified (principal); I83.891 Varicose veins of right lower extremity with other complications; I10 Essential (primary) hypertension; E11.9 Type 2 diabetes mellitus without complications; Z87.891 Personal history of nicotine dependence; K21.9 Gastro-esophageal reflux disease without esophagitis; Z87.01 Personal history of pneumonia (recurrent); Z79.52 Long term (current) use of systemic steroids; Z96.653 Presence of artificial knee joint, bilateral; Z88.5 Allergy status to narcotic agent

== ENCOUNTER 2017-06-24 16:14 | Emergency (ER) | payer MEDICARE ==
[2017-06-24 16:34] VITALS: BP 119/76; PULSE 77; RESP 16; O2SAT 100
== END 2017-06-24 17:45 | disposition home or self-care (01) ==
LOC: SED 16:14
DX: Z48.02 Encounter for removal of sutures (principal)